=== PATIENT | female | born 1965 | race Caucasian/White ===

== ENCOUNTER 2018-08-15 19:06 | Emergency (ER) | payer OTHER ==
[~2018-08-15] VITALS: Ht 162.6 cm; Wt 59.0 kg
[~2018-08-15 19:06] MED LIST: AMBIEN 5 MG TABL5 M1 PO; BENADRYL25 MG PO; CALCIUM 600 +1 EAC1 PO; CEVIMELINE HCL30 MG PO; CLEOCIN HCL150 MG PO; CLONAZEPAM 1 MG1 M1 PO; ESTRADIOL 1 MG T1 M1 PO; FLONASE 0.05%50 MCG NASAL; LAMICTAL 25 MG25 M1 PO; LIORESAL 10 MG10 MG PO; MEDI-MECLIZINE25 MG PO; MELATIN3 MG PO; NORCO 5-325 TA1 EACH PO; PHENERGAN 25 MG25 M1 PO; PROCHLORPERAZINE5 M2 PO; VITAMIN D3400 UNIT PO; VYVANSE20 MG PO; ZYRTEC10 M5 PO; [UNRECOGNIZED DRUG - OTHER]
[2018-08-15] MEDS ORDERED: VITAMIN B-12500 MCG PO (19:37)
[2018-08-15] MEDS ORDERED: LITHIUM CARBON300 M6 PO (19:38)
[2018-08-15 19:45] LABS: ABSOLUTE NEUTROPHILS 2.9 thou/uL (1.4-8.2); BASOPHILS 0.9 % (0.0-2.0); EOSINOPHILS 1.3 % (0.0-3.0); HEMATOCRIT 37.8 % (37.0-47.0); HEMOGLOBIN 12.8 gm/dL (12.0-15.0); LYMPHOCYTES 34.5 % (24.0-44.0); MCV 82.4 fL (80.0-100.0); MONOCYTES 8.4 % (1.0-8.0); PLATELET COUNT 159 thou/uL (150-400); POLYS 54.9 % (36.0-66.0); RBC 4.58 mil/uL (4.20-5.00); RDW 14.4 % (10.5-14.5); WBC 5.3 thou/uL (4.0-11.0)
[2018-08-15 19:55] LABS: CALCIUM 8.9 mg/dL (8.5-10.1); CREATININE 0.9 mg/dL (0.6-1.0)
[2018-08-15 20:10] LABS: URINE BILIRUBIN NEGATIVE (Negative); URINE BLOOD NEGATIVE (Negative); URINE CLARITY CLEAR; URINE COLOR YELLOW; URINE GLUCOSE-RANDOM* NEGATIVE (Negative); URINE KETONES NEGATIVE (Negative); URINE LEUKOCYTES NEGATIVE (Negative); URINE NITRITE NEGATIVE (Negative); URINE PROTEIN (DIPSTICK) NEGATIVE (Negative); URINE UROBILINOGEN 0.2 E.U./dl (0.2-1.0)
[2018-08-15 20:43] LABS: AMP/METHAMP Negative (Negative); BARBITURATES Negative (Negative); BENZODIAZEPINES Negative (Negative); COCAINE Negative (Negative); METHADONE Negative (Negative); OPIATES Negative (Negative); PCP Negative (Negative)
[2018-08-15 21:48] VITALS: BP 114/67
== END 2018-08-15 21:48 | disposition home or self-care (01) ==
LOC: ER 19:06
PROVIDERS: Emergency Medicine
DX: R41.3 Other amnesia (principal); K21.9 Gastro-esophageal reflux disease without esophagitis; F32.9 Major depressive disorder, single episode, unspecified; Z88.8 Allergy status to other drugs, medicaments and biological substances; Z88.2 Allergy status to sulfonamides; Z85.3 Personal history of malignant neoplasm of breast; Z90.11 Acquired absence of right breast and nipple

== ENCOUNTER 2021-03-12 17:24 | Inpatient (IN) | payer OTHER ==
[~2021-03-12] VITALS: Ht 162.6 cm; Wt 52.2 kg
--- NOTE | ~2021-03-12 | EMS ---
[facility] [address] [place] [address] EMS Patient Care Report Name: SIMRAN MARC Room #: PRE ER M.R.#: [id number] Admission: Attend Phys: Discharge: Date of : 65 Report #: [id number] THIS REPORT FOR: //name// Report Transmitted: 03/12/2021 17:11 EMS Care Summary [place], [place]/[facility] Incident [id number] @ 03/12/2021 16:37 Incident Location [address] [place] [address] [place] [address] Patient SIMRAN MARC Female, 55 Years 1965 Patient Address Chief Complaint confusion Disposition Transported No Lights/[place] Dispatch Reason Stroke/CVA Transported To [facility] Narrative pt was a 911 hang up call. PD noticed pt not making sense when she talked and called for ambulance. pt found seated on front stoop, NAD. pt is moving all ext, follows command, but is unable to carry on a conversation. she is able to answer a few simple questions approp but then continues to talk, not making sense, unable to complete full sentences. pt appears to be aware that she is not making sense when she is speaking. she thinks she has been doing this since yesterday. pt home is cluttered and has dog feces all over the floors. she appears to live alone. pt unable to give the name of a hospital she would like to be seen at. pt agrees to be eval at closest ER. pt ambulatory to cot, VS, tx as listed in flow chart. no changes during transport. Initial Vitals @17:06P: 84,R: 18,BP: 114/79,Pain: 0/10,GCS: 14,Glucose: 98,SpO2: 95,Revised [facility] [address] [place] [address] EMS Patient Care Report Name: SIMRAN MARC Room #: PRE ER M.R.#: [id number] Admission: Attend Phys: Discharge: Date of : 65 Report #: [id number] Trauma: 12, Assessments @16:45MENTAL:Confused,Person Oriented,Place Oriented,SKIN:No Abnormalities,HEENT:Head/Face: No Abnormalities,LUNG SOUNDS:ABDOMEN:PELVIS//GI:EXTREMITIES:PULSE:NEURO: Impression Confusion/Delirium Procedures @16:45 ALS Assessment Response: Unchanged @17:03 Stretcher Response: Unchanged @17:05 3-Lead ECG Response: UnchangedSucceeded @17:07 IV Therapy - Saline Lock 10cc (20 ga) Site: Hand-Left Response: UnchangedSucceeded Timeline 16:36,Call Received 16:36,Dispatch Notified 16:37,Dispatched 16:37,En Route 16:44,On Scene 16:45,At Patient 16:45,ALS Assessment,Response: Unchanged 17:03,Stretcher,Response: Unchanged 17:05,3-Lead ECG,Response: UnchangedSucceeded, 17:06,BP: 114/79 M,PULSE: 84,RR: 18 R,SPO2: 95 Ox,ETCO2: ,B,PAIN: 0,GCS: 14, 17:07,IV Therapy - Saline Lock 10cc 20 ga Site: Hand-Left,Response: UnchangedSucceeded, 17:09,Depart Scene 17:21,At Destination 17:34,Call Closed Disclaimer v1.1 Copyright 2020 [email or web address] This EMS Care Summary contains data elements from the applicable legal record (which may be displayed differently). It is designed to provide pertinent information for the following purposes: continuity of care, clinical quality, and state data reporting. The complete legal record is available to ED staff and administrators of the receiving hospital in [employer]'s Patient Tracker. All data is provided "as is."
[~2021-03-12 17:24] MED LIST changes: +LITHIUM CARBON300 M6 PO; +VITAMIN B-12500 MCG PO
[2021-03-12 17:28] VITALS: BP 128/71
[2021-03-12 17:45] LABS: ABSOLUTE NEUTROPHILS 2.2 thou/uL (1.4-8.2); EOSINOPHILS 0.6 % (0.0-3.0); HEMATOCRIT 36.9 % (37.0-47.0); HEMOGLOBIN 12.3 gm/dL (12.0-15.0); LYMPHOCYTES 38.8 % (24.0-44.0); MCH 27.5 pg (26.0-34.0); MCHC 33.2 g/dL (28.0-37.0); MCV 82.7 fL (80.0-100.0); MONOCYTES 6.6 % (1.0-8.0); PLATELET COUNT 145 thou/uL (150-400); RBC 4.46 mil/uL (4.20-5.00); RDW 13.9 % (10.5-14.5); WBC 4.2 thou/uL (4.0-11.0)
[2021-03-12 17:50] LABS: ANION GAP 6 mmol/L (7-16); BUN 10 mg/dL (7-18); CALCIUM 8.6 mg/dL (8.5-10.1); CHLORIDE 107 mmol/L (98-107); CO2 28 mmol/L (21-32); CREATININE 0.9 mg/dL (0.6-1.0); GLUCOSE 95 mg/dL (74-106); POTASSIUM 3.7 mmol/L (3.5-5.1); SODIUM 141 mmol/L (136-145)
[2021-03-12 17:58] LABS: APTT 25.5 Seconds (24.5-32.8); INR 0.99; PROTIME 10.8 Seconds (10.5-12.1)
[2021-03-12 18:00] LABS: ALBUMIN 3.8 g/dL (3.4-5.0); SALICYLATE < 2.8 mg/dL (2.8-20.0); SGOT 19 U/L (15-37); SGPT 14 U/L (14-59); TOTAL BILIRUBIN 0.6 mg/dL (0.2-1.0); TOTAL PROTEIN 6.6 g/dL (6.4-8.2)
[2021-03-12 18:59] LABS: URINE BILIRUBIN NEGATIVE (Negative); URINE BLOOD NEGATIVE (Negative); URINE COLOR YELLOW; URINE GLUCOSE-RANDOM* NEGATIVE (Negative); URINE KETONES TRACE (Negative); URINE NITRITE-REFLEX NEGATIVE (Negative); URINE PROTEIN (DIPSTICK) TRACE (Negative)
[2021-03-12 19:05] LABS: URINE CLARITY SL HAZY; URINE LEUKOCYTES-REFLEX 3+ (Negative)
[2021-03-12 19:08] LABS: AMP/METHAMP Negative (Negative); BARBITURATES Negative (Negative); BENZODIAZEPINES POSITIVE (Negative); COCAINE Negative (Negative); METHADONE Negative (Negative); OPIATES Negative (Negative); PCP Negative (Negative)
--- NOTE | 2021-03-12 19:11 | NUR ---
REPORT GIVEN TO CHANG SHAIKH AT THIS TIME
[2021-03-12 19:16] LABS: BACTERIA-REFLEX >30 Many /HPF (None Seen); CASTS None Seen /LPF (None Seen); CRYSTALS None Seen /LPF (None Seen); MUCUS >6 Heavy strn/LPF (None Seen); SQUAMOUS 4-10 Moderate /LPF (0-3); URINE RBC None Seen /HPF (NONE SEEN)
[2021-03-12 21:36] VITALS: BP 119/62
[2021-03-12 22:15] VITALS: BP 114/61
[2021-03-12 22:39] VITALS: BP 106/47
[2021-03-13 05:19] VITALS: BP 82/38
--- NOTE | 2021-03-13 06:31 | NUR ---
PT WAS ADMITTED TO THE UNIT FROM THE ER IN A STABLE CONDITION.PT WAS AXOX4 ON ADMISSION,PT WAS IRRITABLE ON ADMIT.UP WITH ASSIST TO THE TOILET.PT HAS REDNESS AROUND HER MOUTH.PT STATED THAT IT WAS FROM HER SEBORRHEIC DERMATITIS.MULTIPLE MOLES TO HER BACK.PT CONT ON IVF.PT ABLE TO MAKE HER NEEDS KNOWN.CALL LIGHT WITHIN REACH.
--- NOTE | 2021-03-13 07:20 | EKG ---
[place] [address] [address] [facility] [place] [address] ELECTROCARDIOGRAM REPORT Name: SIMRAN MARC Room #: 435-P ADM IN M.R.#: [id number] Admission: 03/12/21 Attend Phys: Roger Multani MD Discharge: Date of : 65 Report #: [id number] [facility] ED Test Date: 2021-03-12 Test Time: 17:43:22 Pat Name: SIMRAN MARC Department: Room: 435 Gender: F Pilot Teacher: ENRIQUE : 1965 Requested By: Mendoza Johnson Order Number: [id number] MD: Bipin Ellis Measurements Intervals [place] Rate: 72 P: 41 FL: 179 QRS: -9 QRSD: 103 T: 16 QT: 415 QTc: 455 Interpretive Statements Sinus rhythm RSR' in V1 or V2, probably normal variant Borderline T wave abnormalities No previous ECG available for comparison Electronically Signed On 03-13-2021 7:20:11 CDT by Bipin Ellis [email or web address] <ELECTRONICALLY SIGNED> By: Bipin Ellis MD, [facility] 03/13/21 0720 1743 1743 Bipin Ellis MD, FACC /EPI
[2021-03-13 07:27] LABS: HEMATOCRIT 34.1 % (37.0-47.0); HEMOGLOBIN 11.2 gm/dL (12.0-15.0); MCH 27.7 pg (26.0-34.0); MCHC 32.9 g/dL (28.0-37.0); RBC 4.06 mil/uL (4.20-5.00); RDW 13.8 % (10.5-14.5); WBC 3.9 thou/uL (4.0-11.0)
[2021-03-13 07:31] LABS: ANION GAP < 0 mmol/L (7-16); BUN 13 mg/dL (7-18); CALCIUM 7.8 mg/dL (8.5-10.1); CHLORIDE 110 mmol/L (98-107); CO2 36 mmol/L (21-32); CREATININE 0.6 mg/dL (0.6-1.0); GLUCOSE 85 mg/dL (74-106); POTASSIUM 3.9 mmol/L (3.5-5.1); SODIUM 141 mmol/L (136-145)
[2021-03-13 08:04] VITALS: BP 99/64
--- NOTE | 2021-03-13 10:55 | NUR ---
Assess due to high nutrition risk screening criteria. Admit with AMS, UTI. Lives alone, hx depression, SI. Psych consult ordered. Upon visit, pt voiced eating breakfast and appetite was "fine". Wts have been stable around 115 lb for past 6 mo at least. Able to order own meal choices. Presents low nutrition risk
--- NOTE | 2021-03-13 11:21 | NUR ---
ASSUMED PT CARE THIS AM. PT C/O THIS AM THAT HAVEN'T TALK TO HER SINCE YESTERDAY. PT IS ALERT & ORIENTED X4. PT HAS R LIMB ALERT AND HAS IV SITE ON L WRIST RUNNING 80ML/HR. PT IS STAND BY TO THE BATHROOM. PT C/O OF HEADACHE AND GIVEN TYLENOL PER PT REQUEST. WILL CONTINUE TO MONITOR PT. FOLLOW POC.
--- NOTE | 2021-03-13 13:56 | NUR ---
INITIAL ASSESSMENT: SHI reviewed chart and spoke with nursing and attending physician. Pt was admitted from home due to AMS/UTI. Pt's neighbors called EMS due to not seeing pt for a while. Per ER report, pt's house was noted to be unkempt. Pt with hx of major depression/SI. Pt's mother recently . Psych consulted to evaluate pt. SHI met with pt at bedside. Introduced role of SW. Pt is alert/orientated. Pt reports that "these situations" happen to her occasionally, where she becomes confused and then is brought to the hospital, and then is discharged home. Pt reports she lives at home with her 13 yr old dog. Pt states that she has not been feeling well for the past several weeks and has not been able to keep up with cleaning the house and taking her dog outside. ER report states there were dog feces in her home. Pt reports she is independent with ADLs. Pt does not use any DME. No hx of HH services or post-acute placement. Pt's PCP is Dr. Aundrea Epstein at [facility] office. Pt states she called her PCP's office this morning to let them know she is in the hospital. Per pt, the office said to not call their office back, and that Dr. Epstein will not be seeing her any longer. Pt states she does not know if Dr Epstein will not see her in the future, or if they meant while she was in the hospital. Dr. Epstein does not see pts at [facility]. Pt states that she is in the process of finding a new psychiatrist to manage her medications. Pt had an appt at [facility] , but then cancelled her appt. SHI discussed with pt that psych has been consulted to evaluate her while in the hospital. Pt then asked if she could be disharged home today. SW explained that the physicians would discuss. Pt requests to speak with a physician, as she "has not seen a doctor" since she has been in the hospital. Pt will need transportation home when discharged. SHI confirmed pt's home address: [address] [place] [address], [facility] [id number]. SHI notified attending physician, who came to see pt. Psych consult to be completed. Discharge is anticipated for tomorrow. SHI is following to assist as needed with discharge planning.
[2021-03-13 16:26] VITALS: BP 122/77
[2021-03-13 19:08] VITALS: BP 115/61
[2021-03-14 04:10] VITALS: BP 95/65
--- NOTE | 2021-03-14 04:53 | NUR ---
ASSUMED PT CARE AT 1900.PT ALERT WITH INTERMITTENT CONFUSION.PT CAME TO THE NURSES STATION AT ONE POINT AND STATED THAT SHE WAS HALLUCINATING.PT ALERT TO SELF/PLACE AND TIME AT THE TIME.PT WENT BACK TO HER ROOM AND LAID DOWN ON HER BED.DR SCHULZ HERE TO SEE PT AT ,ORDERS NOTED.PT UP ADLIB IN ROOM.PT ABLE TO MAKE HER NEEDS KNOWN.CALL LIGHT WITHIN REACH.
[2021-03-14 07:30] VITALS: BP 103/57
--- NOTE | 2021-03-14 08:56 | NUR ---
ASSUMED PT CARE THIS AM. PT IS ALERT & ORIENTED X2. PT HAS IV SITE ON LFA RUNNING NS @80ML/HR. PT HAS R LIMB ALERT. PT IS UP AD JOSEFA. LAST BM WAS TODAY. PT STATED THIS AM THAT SHE WANTED TO HOME BY NOON AND WANTED TO SEE GIVEN MORNING MEDICATION THIS AM. PT ABLE TO SWALLOW MEDICATION WHOLE. PT IS ON ROOM AIR. PT ON THE BED EATING BREAKFAST, BED ON THE LOWEST POSITION, SIDE RAILS UP, CALL LIGHT WITHIN REACH. WILL CONTINUE TO MONITOR PT. FOLLOW POC.
[2021-03-14] MEDS ORDERED: CEPHALEXIN500 MG PO (09:45)
[2021-03-14 09:50] VITALS: BP 103/57
--- NOTE | 2021-03-14 11:39 | NUR ---
DISCHARGE NOTE: SW reviewed chart and spoke with nursing and attending physician. Psych evaluated pt yesterday. Pt to follow up with outpatient psych and PCP for medication mgmt. Pt was discharged prior to SW visit. Pt arranged her own transportation home. Should pt return and need transportation home. Cab voucher can be provided. No additional SW needs identified at this time. SW is available to assist should needs arise.
[2021-03-15] MEDS ORDERED: CEPHALEXIN500 MG PO (10:25)
== END 2021-03-14 11:27 | disposition home or self-care (01) | DRG 689 ==
LOC: ER 17:24 → 4S 19:30 → EROBS 19:30 → 4S 22:15
PROVIDERS: Nurse Practitioner; ADMIT Hospitalist; ATTEND Hospitalist
DX: N39.0 Urinary tract infection, site not specified (principal); G92.9 Unspecified toxic encephalopathy; R45.851 Suicidal ideations; F32.9 Major depressive disorder, single episode, unspecified; K21.9 Gastro-esophageal reflux disease without esophagitis; R41.0 Disorientation, unspecified; Z86.59 Personal history of other mental and behavioral disorders; Z85.3 Personal history of malignant neoplasm of breast; Z90.11 Acquired absence of right breast and nipple; Z88.2 Allergy status to sulfonamides; Z88.8 Allergy status to other drugs, medicaments and biological substances; Z20.822 Contact with and (suspected) exposure to COVID-19
CPT/HCPCS: 10100; 10195